=== PATIENT | female | born 1965 ===

== ENCOUNTER 2017-08-18 11:52 | Emergency (ER) | payer MEDICAID ==
[2017-08-18 11:52] VITALS: BMI 39.7
[2017-08-18 12:33] VITALS: BP 147/94; PULSE 92; RESP 16; TEMP 97.4; O2SAT 98
--- NOTE | 2017-08-18 14:04 | ED PDOC ---
HPI: CCC, URI, Sore Throat Time Seen by Provider: 08/18/17 13:04 Chief Complaint (Nursing): Flu-like Symptoms Chief Complaint (Provider): Flu-like Symptoms History Per: Patient History/Exam Limitations: no limitations Onset/Duration Of Symptoms: Days (x 3) Current Symptoms Are (Timing): Still Present Additional Complaint(s): Susan Wadsworth is a 52-year-old female who presents to the Emergency Department complaining of cough, congestion, headache, and body aches for 3 days. She has not taken any Tylenol or Motrin at home. Cough is productive of yellow phlegm. Patient denies any chest pain or shortness of breath. PMD: Clinic, [facility] Past Medical History Reviewed: Historical Data, Nursing Documentation, Vital Signs Vital Signs: Last Vital Signs Temp 97.4 F L 08/18/17 12:30 Pulse 92 H 08/18/17 12:30 Resp 16 08/18/17 12:30 BP 147/94 H 08/18/17 12:30 Pulse Ox 98 08/18/17 15:31 - Medical History PMH: Anemia, Anxiety, Depression, Fibromyalgia, Hypothyroidism - Surgical History Other surgeries: Fibroid removal, Facial surgery for removal of cyst - Family History Family History: States: No Known Family Hx - Living Arrangements Living Arrangements: With Family - Social History Current smoker - smoking cessation education provided: No Alcohol: None Drugs: Denies - Immunization History Hx Tetanus Toxoid Vaccination: No Hx Influenza Vaccination: No Hx Pneumococcal Vaccination: No - Home Medications Home Medications: Ambulatory Orders Medication Instructions Recorded Levothyroxine [Synthroid] 225 mcg PO DAILY 12/13/13 Iron Ag,Ps/C/Fa6/B12/Zn/SA/Sto 1 tab PO DAILY 04/28/17 [Niferex Tablet] Liothyronine [Cytomel] 25 mcg PO DAILY 04/28/17 Norgestimate-Ethinyl Estradiol 1 tab PO DAILY 04/28/17 [Sprintec 28 Day Tablet] Sertraline [Zoloft] 50 mg PO DAILY 04/28/17 Ferrous Sulfate [Feosol] 325 mg PO ONCE #30 tab 05/01/17 Ibuprofen [Motrin Tab] 600 mg PO Q6H PRN #28 tab 05/01/17 oxyCODONE/Acetaminophen [Percocet 1 tab PO Q4 PRN #20 tab 05/01/17 5/325 mg Tab] Albuterol HFA [Ventolin HFA 90 1 puff IH ASDIR #1 unit 08/18/17 mcg/actuation (8 g)] Benzonatate 200 mg PO TID PRN #20 capsule 08/18/17 Oseltamivir Phosphate [Tamiflu] 75 mg PO BID #10 capsule 08/18/17 - Allergies Allergies/Adverse Reactions: Allergies Allergy/AdvReac Type Severity Reaction Status Date / Time No Known Allergies Allergy Verified 08/18/17 12:30 Review of Systems ROS Statement: Except As Marked, All Systems Reviewed And Found Negative Constitutional: Positive for: Other (Body aches) ENT: Positive for: Nose Congestion Cardiovascular: Negative for: Chest Pain Respiratory: Positive for: Cough, Sputum (yellow). Negative for: Shortness of Breath Neurological: Positive for: Headache Physical Exam - Reviewed Nursing Documentation Reviewed: Yes Vital Signs Reviewed: Yes - Physical Exam Appears: Positive for: Non-toxic, No Acute Distress Head Exam: Positive for: ATRAUMATIC, NORMAL INSPECTION, NORMOCEPHALIC Skin: Positive for: Normal Color. Negative for: Rash Eye Exam: Positive for: Normal appearance ENT: Positive for: Normal ENT Inspection, TM Is/Are (normal). Negative for: Pharyngeal Erythema, Tonsillar Exudate, Tonsillar Swelling Neck: Positive for: Normal, Painless ROM Cardiovascular/Chest: Positive for: Regular Rate, Rhythm. Negative for: Murmur Respiratory: Positive for: Normal Breath Sounds. Negative for: Accessory Muscle Use, Wheezing, Respiratory Distress Neurologic/Psych: Positive for: Alert, Oriented - ECG O2 Sat by Pulse Oximetry: 98 (RA) Pulse Ox Interpretation: Normal - Other Rad CXR X-Ray: Interpreted by Me, Viewed By Me X-Ray Interpretation: no acute finding Medical Decision Making Medical Decision Making: Initial Impression: 52-year-old female with flu-like symptoms Time: 13:53 Plan: Influenza A B Motrin 600mg PO Chest X-Ray Flu A is positive. Will d/c with rx tamiflu, ventolin and tessalon perles. Patient was instructed to take tylenol and motrin for fever and body aches, to rest and drink plenty of fluids. Advised follow up with clinic/PMD in 2-3 days. Scribe Attestation: Documented by Aline Suero, acting as a scribe for Meliza Soto PA-C Provider Scribe Attestation: All medical record entries made by the Scribe were at my direction and personally dictated by me. I have reviewed the chart and agree that the record accurately reflects my personal performance of the history, physical exam, medical decision making, and the department course for this patient. I have also personally directed, reviewed, and agree with the discharge instructions and disposition. Disposition - Clinical Impression Clinical Impression: Influenza - Patient ED Disposition Is Patient to be Admitted: No Counseled Patient/Family Regarding: Studies Performed, Diagnosis, Need For Followup, Rx Given - Disposition Referrals: [facility] [Outside] Disposition: Routine/Home Disposition Time: 15:30 Condition: STABLE Additional Instructions: Take prescription medications as directed. Take [id number] Tylenol and Motrin for fever control and follow-up with clinic in 2-3 days. Prescriptions: Albuterol HFA [Ventolin HFA 90 mcg/actuation (8 g)] 1 puff IH ASDIR #1 unit Benzonatate 200 mg PO TID PRN #20 capsule PRN Reason: Cough Oseltamivir Phosphate [Tamiflu] 75 mg PO BID #10 capsule Instructions: Influenza (ED) Forms: [employer] (Mauritian)
--- NOTE | 2017-08-18 16:30 | RAD ---
HISTORY: cough COMPARISON: No prior. TECHNIQUE: Chest PA and lateral FINDINGS: LUNGS: No active pulmonary disease. PLEURA: No significant pleural effusion identified. No pneumothorax apparent. CARDIOVASCULAR: Normal. OSSEOUS STRUCTURES: No significant abnormalities. VISUALIZED UPPER ABDOMEN: Normal. OTHER FINDINGS: None. IMPRESSION: No active disease.
== END 2017-08-18 16:07 | disposition home or self-care (01) ==
LOC: H.ER 11:52
DX: J11.1 Influenza due to unidentified influenza virus with other respiratory manifestations (principal); E03.9 Hypothyroidism, unspecified; F32.9 Major depressive disorder, single episode, unspecified; F41.9 Anxiety disorder, unspecified; M79.7 Fibromyalgia